=== PATIENT | female | born 1940 | race Caucasian/White ===

== ENCOUNTER 2019-08-05 21:41 | Emergency (ER) | payer MEDICARE, OTHER ==
[~2019-08-05] VITALS: Ht 167.6 cm; Wt 75.3 kg
--- NOTE | 2019-08-05 22:00 | NUR ---
BIB DAUGHTER C/O R HAND CAT SCRATCH. ABRASION NOTED WITH REDNESS & SWELLING. PATIENT A/OX4, BREATHING EVEN AND UNLABORED, NO SOB NOTED. RIGHT HAND SCRATCH, NOTED WITH DRY BLOOD, NO DISCHARGE NOTED. NEEDS ATTENDED.
[2019-08-05] MEDS ORDERED: PIPERACILLIN /TAZOBACTAM 3.375 G VIAL IV ONE (22:38)
--- NOTE | 2019-08-05 22:40 | NUR ---
IV LINE ESTABLISHED ON LEFT AC G20.
[2019-08-05] MEDS ORDERED: PIPERACILLIN /TAZOBACTAM 3.375 G in IV D5W 50 ML IV ONE (23:00)
[2019-08-05 23:41] VITALS: BP 140/70
--- NOTE | 2019-08-05 23:41 | NUR ---
IV removed. Catheter intact and site benign. Pressure and 4x4 applied to site. No bleeding noted.Patient discharged to home in stable condition. Written and verbal after care instructions given to daughter and verbalizes understanding of instruction.
== END 2019-08-05 23:41 | disposition home or self-care (01) ==
LOC: ER 21:46
DX: S61.432A Puncture wound without foreign body of left hand, initial encounter (principal); I10 Essential (primary) hypertension; E11.9 Type 2 diabetes mellitus without complications; E03.9 Hypothyroidism, unspecified; Z85.028 Personal history of other malignant neoplasm of stomach; W55.01XA Bitten by cat, initial encounter; Y93.89 Activity, other specified; Y92.89 Other specified places as the place of occurrence of the external cause; Y99.8 Other external cause status
CPT/HCPCS: 96365; 99283; J2543 ×2; J7060